=== PATIENT | male | born 1995 | race Caucasian/White ===

== ENCOUNTER 2024-08-13 17:41 | Emergency (ER) | payer OTHER ==
[2024-08-13] MEDS ORDERED: hydrOXYzine HCl 50 MG/ML SDV IM ONE (17:57)
[2024-08-13] MEDS: buPROPion 150 MG Tab.SR PO ONE (18:12)
== END 2024-08-13 18:40 ==
LOC: FB.ED 17:41
DX: F15.10 Other stimulant abuse, uncomplicated (principal); F11.10 Opioid abuse, uncomplicated; F98.8 Other specified behavioral and emotional disorders with onset usually occurring in childhood and adolescence; F41.8 Other specified anxiety disorders; F17.210 Nicotine dependence, cigarettes, uncomplicated; Z79.899 Other long term (current) drug therapy
CPT/HCPCS: 99283; A9270